=== PATIENT | male | born 1940 | race Two or more races ===

== ENCOUNTER 2022-07-08 | Emergency (ER) | payer MEDICARE, BC ==
[~2022-07-08] VITALS: Ht 180.3 cm; Wt 68.2 kg
[~2022-07-08] MED LIST: AMIT-166 PO; CHOL500013 PO; FERR325T27 PO; FINA-27 PO; FOLI-130 PO; ICOS1CAP PO; MEMA5 PO; TAMS-13 PO
[2022-07-08] MEDS ORDERED: DICL100G51 TP (00:24)
[2022-07-08] MEDS ORDERED: ALPR-707 PO (00:24)
[2022-07-08 10:03] VITALS: BP 120/74
[2022-07-08 15:56] LABS: GLUCOMETER DEV NAME(LOC) ERT.5; GLUCOSE,POINT OF CARE 96 MG/DL (70-110)
== END 2022-07-08 10:04 | disposition home or self-care (01) ==
LOC: EMS 00:02
DX: M25.562 Pain in left knee (principal); M25.561 Pain in right knee; F32.A Depression, unspecified; E11.9 Type 2 diabetes mellitus without complications; F12.90 Cannabis use, unspecified, uncomplicated
CPT/HCPCS: 82962; 99283